=== PATIENT | female | born 2000 | race Caucasian/White ===

== ENCOUNTER 2019-03-22 06:45 | Inpatient (IN) | payer OTHER ==
[2019-03-22] MEDS ORDERED: BUTORPHANOL TARTRATE 2 MG/ML VIAL ONE (07:41)
[2019-03-22] MEDS ORDERED: PROMETHAZINE HCL 25 MG/1 ML VIAL ONE (07:41)
[2019-03-22 07:42] VITALS: BMI 25.4
[2019-03-22] MEDS ORDERED: ELECTROLYTE-148 SOLN 1,000 ML IV SCH (08:00)
[2019-03-22 08:04] LABS: BASO % 0.2 % (0-2.0); EOS % 0.2 % (0-4.5); HEMATOCRIT 36.6 % (32.4-45.2); HEMOGLOBIN 12.4 GM/dL (10.7-15.3); MCHC 33.8 g/dl (32.0-36.0); MEAN CELL VOLUME 91.5 fl (80-96); MEAN PLT VOLUME 10.5 fl (7.5-11.1); MONO % 5.3 % (3.8-10.2); NEUT % 83.3 % (42.8-82.8); RDW 12.8 % (11.6-15.6); WHITE BLOOD COUNT 10.4 K/mm3 (4.0-10.0)
[2019-03-22 08:07] LABS: BLOOD UREA NITROGEN 6.5 mg/dL (7-18); CALCIUM 8.7 mg/dL (8.5-10.1); CREATININE 0.5 mg/dL (0.55-1.3)
[2019-03-22] MEDS ORDERED: BUTORPHANOL TARTRATE 2 MG/ML VIAL IVPB ONE (08:15)
[2019-03-22] MEDS ORDERED: PROMETHAZINE HCL 25 MG/1 ML VIAL IVPB ONE (08:15)
[2019-03-22] MEDS ORDERED: PROMETHAZINE HCL 25 MG/1 ML VIAL IVPB SCH (08:15)
[2019-03-22 08:23] LABS: INR 0.93 (0.83-1.09)
[2019-03-22 08:26] LABS: ACTIVATED PTT 27.8 SECONDS (25.2-36.5)
[2019-03-22 08:56] LABS: PLATELET COUNT 88 K/MM3 (134-434)
[2019-03-22] MEDS ORDERED: OXYTOCIN 30 UNITS in 0.9% NS 30 UNIT/500 ML INFUS.BAG IVPB ONE (09:12)
--- NOTE | 2019-03-22 09:19 | HP ---
Past Medical History - Primary Care Physician PCP:: Jun Piña - Admission Chief Complaint: 38 weeks, labor History of Present Illness: 18 yo f g 1 p0 edc by sono 04/02/19, c/o contraction, cx 7 cm 80 vx -1 mi, fhr cat 1, irregular contraction, . History Source: Friend, Medical Record Limitations to Obtaining History: Language Barrier - Past Medical History ...: 1 ...Para: 0 ...Term: 0 ...: 0 ...Spon : 0 ...Induced : 0 ...Multiple Gestation: 0 ...LMP: 06/26/18 ... Weeks Gestation by Dates: 38.3 ...EDC by Dates: 04/02/19 - Past Surgical History Hx Myomectomy: No Hx Transabdominal Cerclage: No - Smoking History Smoking history: Never smoked Have you smoked in the past 12 months: No - Alcohol/Substance Use Hx Alcohol Use: No - Social History History of Recent Travel: No Home Medications - Allergies Allergies/Adverse Reactions: Allergies Allergy/AdvReac Type Severity Reaction Status Date / Time No Known Allergies Allergy Verified 03/22/19 08:18 - Home Medications Home Medications: Ambulatory Orders Ferrous Sulfate [Iron] 325 mg PO DAILY 03/21/19 Vit No.129/Iron/Folic [ One Daily Tablet] 1 each PO DAILY 03/21 Review of Systems - Review of Systems Constitutional: reports: No Symptoms Eyes: reports: No Symptoms HENT: reports: No Symptoms Neck: reports: No Symptoms Cardiovascular: reports: No Symptoms Respiratory: reports: No Symptoms Gastrointestinal: reports: No Symptoms Genitourinary: reports: No Symptoms Breasts: reports: No Symptoms Reported Musculoskeletal: reports: No Symptoms Integumentary: reports: No Symptoms Neurological: reports: No Symptoms Endocrine: reports: No Symptoms Hematology/Lymphatic: reports: No Symptoms Psychiatric: reports: No Symptoms Physical Exam - Maternity Vital Signs: Vital Signs Temperature 98.0 F 03/22/19 08:01 Pulse Rate 79 03/22/19 08:01 Respiratory Rate 20 03/22/19 08:01 Blood Pressure 113/78 03/22/19 08:01 O2 Sat by Pulse Oximetry (%) Constitutional: Yes: Well Nourished, No Distress, Calm Eyes: Yes: WNL, Conjunctiva Clear, EOM Intact HENT: Yes: WNL, Atraumatic, Normocephalic Neck: Yes: WNL, Supple, Trachea Midline Cardiovascular: Yes: WNL, Regular Rate and Rhythm Breast(s): Yes: WNL - Abdominal Exam/OB Fundal Height: 38 Number of Fetuses: Single Presentation: Vertex Regularity: Irregular Intensity: Mod/Strong Heart Rate Location: [facility] Category: I Accelerations: Uniform Decelerations: None - Vaginal Exam/OB Vaginal Bleediing: Bloody Show Dilatation (cm): 7 cm Effacement (%): 100 Amniotic Membrane Status: Intact Presentation: Vertex/Position Station: 0 - Physical Exam Musculoskeletal: Yes: WNL Extremities: Yes: WNL Edema: Yes Edema: LLE: Trace, RLE: Trace Deep Tendon Reflex Grade: Normal +2 ...Motor Strength: WNL Psychiatric: Yes: WNL - Labs Lab Results: CBC, BMP 03/22/19 07:25 03/22/19 07:25 Hemorrhage Risk Assessment - Risk Factors Medium Risk Factors: Yes: None High Risk Factors: Yes: None Risk Score: 1 Risk Level: Medium Risk Problem List - Problems (1) with 38 completed weeks gestation Code(s): Z3A.38 - 38 WEEKS GESTATION OF (2) Labor established Code(s): DQV8357 - Assessment/Plan admit for vaginal delivery
[2019-03-22] MEDS ORDERED: LIDOCAINE HCL 1% PRESERVATIVE FREE - 30ML VIAL ONE (09:23)
[2019-03-22] MEDS ORDERED: OXYTOCIN 20 UNITS in 0.9% NS 20 UNIT/1,000 ML INFUS.BAG IV ONE (09:24)
--- NOTE | 2019-03-22 09:25 | PN ---
Progress Note (short form) - Note Progress Note: cx 8 cm 100 vx 0 , arom clear , fhr cat1 Problem List - Problems (1) with 38 completed weeks gestation Code(s): Z3A.38 - 38 WEEKS GESTATION OF (2) Labor established Code(s): [id number] -
[2019-03-22] MEDS: OXYTOCIN 20 UNITS in 0.9% NS 20 UNIT/1,000 ML INFUS.BAG IV SCH ×2 (10:00→15:00)
[2019-03-22] MEDS ORDERED: PATIENT'S OWN MEDICATION (NON-FORMULARY) (Ferrous Sulfate [Iron] 325 MG) PO SCH (10:00)
[2019-03-22] MEDS ORDERED: WITCH HAZEL 50% (TUCKS) 40 PAD/JAR PAD TP PRN (10:19)
[2019-03-22] MEDS ORDERED: BENZOCAINE 28 GM HEMORRHOIDAL OINTMENT TP PRN (10:19)
[2019-03-22] MEDS ORDERED: METHYLERGONOVINE MALEATE 0.2 MG/1 ML AMP IM PRN (10:19)
[2019-03-22] MEDS ORDERED: D5W-LR W/ 20 UNITS OXYTOCIN 20 UNIT/1,000 ML INFUS.BAG IV SCH (10:30)
[2019-03-22] MEDS ORDERED: ACETAMINOPHEN 325 MG TABLET (FP) ONE (11:09)
[2019-03-22] MEDS: IBUPROFEN 600 MG TABLET (FP) PO PRN ×3 (11:09→22:17)
[2019-03-22] MEDS: ACETAMINOPHEN 325 MG TABLET (FP) PO PRN ×3 (11:09→22:13)
[2019-03-22] MEDS ORDERED: IBUPROFEN 600 MG TABLET (FP) PO ONE (11:10)
[2019-03-22] MEDS: BENZOCAINE 20% 57 GM BOTTLE TP PRN (13:56)
[2019-03-22] MEDS: FERROUS SO4 325 MG TABLET (FP) PO SCH (17:46)
[2019-03-23] MEDS: FERROUS SO4 325 MG TABLET (FP) PO SCH ×2 (07:34→17:32)
[2019-03-23] MEDS: IBUPROFEN 600 MG TABLET (FP) PO PRN ×3 (07:34→19:18)
[2019-03-23] MEDS: ACETAMINOPHEN 325 MG TABLET (FP) PO PRN ×4 (07:35→21:17)
--- NOTE | 2019-03-23 07:37 | PN ---
Progress Note (short form) - Note Progress Note: ppd 1 doing well, no c/o voids ok, no excess vaginal bleeding CBC, BMP 03/22/19 07:25 Last Vital Signs Temp Pulse Resp BP Pulse Ox 98.4 F 78 18 108/63 100 03/23/19 05:00 03/23/19 05:00 03/23/19 05:00 03/23/19 05:00 03/22/19 11:00 abdomen soft, uterus firm, non tender lochia mild no calf tenderness plan ambulate , cbc Problem List - Problems (1) with 38 completed weeks gestation Code(s): Z3A.38 - 38 WEEKS GESTATION OF (2) Labor established Code(s): [id number] -
[2019-03-23 07:50] LABS: BASO % 0.4 % (0-2.0); EOS % 0.5 % (0-4.5); HEMATOCRIT 30.1 % (32.4-45.2); HEMOGLOBIN 10.3 GM/dL (10.7-15.3); LYMPH % 22.1 % (8-40); MCH 31.4 pg (25.7-33.7); MCHC 34.3 g/dl (32.0-36.0); MEAN CELL VOLUME 91.5 fl (80-96); MEAN PLT VOLUME 10.3 fl (7.5-11.1); MONO % 7.5 % (3.8-10.2); NEUT % 69.5 % (42.8-82.8); RBC 3.29 M/mm3 (3.60-5.2); RDW 13.1 % (11.6-15.6); WHITE BLOOD COUNT 9.4 K/mm3 (4.0-10.0)
[2019-03-23 09:35] LABS: PLATELET COUNT 78 K/MM3 (134-434)
[2019-03-23] MEDS ORDERED: DIPHTH,PERTUSS(ACELL),TET 0.5 ML DISP.SYRIN IM ONE (10:00)
[2019-03-23] MEDS: PRENATAL VITAMINS W/ FOLIC ACID TABLET (FP) PO SCH (10:09)
[2019-03-23] MEDS ORDERED: oxyCODONE HCL 5 MG TABLET PO PRN ×2 (20:08→20:09)
[2019-03-23] MEDS: oxyCODONE HCL 5 MG TABLET PO PRN (21:17)
[2019-03-23] MEDS: BENZOCAINE 20% 57 GM BOTTLE TP PRN (21:18)
[2019-03-23] MEDS ORDERED: SENNOSIDES/DOCUSATE COMBO (SENNA PLUS) TABLET (UD) PO PRN (22:00)
--- NOTE | 2019-03-24 05:11 | DS ---
Physical Exam-PREFLIGHT MECHANIC Vital Signs: Vital Signs Temperature 98.3 F 03/23/19 22:00 Pulse Rate 90 03/23/19 22:00 Respiratory Rate 18 03/23/19 22:00 Blood Pressure 101/55 L 03/23/19 22:00 O2 Sat by Pulse Oximetry (%) 100 03/22/19 11:00 Constitutional: Yes: Well Nourished Eyes: Yes: Conjunctiva Clear HENT: Yes: Atraumatic Neck: Yes: Supple Cardiovascular: Yes: Regular Rate and Rhythm Respiratory: Yes: Regular Gastrointestinal: Yes: Normal Bowel Sounds ...Rectal Exam: Yes: WNL Renal/: Yes: WNL Pelvis: Yes: WNL External Genitalia: Yes: Normal Vaginal Exam: Yes: Normal Cervix: Yes: Normal Uterus: Yes: Firm ....Post : Yes: Uterus firm, Moderate lochia serosa Breast(s): Yes: WNL Musculoskeletal: Yes: WNL Extremities: Yes: WNL Neurological: Yes: Alert, Oriented ...Motor Strength: WNL Psychiatric: Yes: Alert, Oriented Labs: CBC, BMP 03/23/19 07:15 03/22/19 07:25 Delivery - Delivery Type of Anesthesia: Local Episiotomy/Laceration: Midline Delivery, Single - Stages of Labor Date 1st Stage Initiatied: 03/22/19 Time 1st Stage Initiated: 01:00 Date 2nd Stage Initiated: 03/22/19 Time 2nd Stage Initiated: 09:30 Date of Delivery: 03/22/19 Time of Delivery: 09:54 Time Placenta Delivered: 10:00 - Condition of Internetworking Technician/Metal Spinner Present: No Gender: Male Weight: 6 lb 15 oz Position: Left, OA Total Hours ROM (Hrs/Mins): 54 MINS - 1 Minute Total Score: 9 5 Minutes Total Score: 9 - [place] Feeding Plan Initial Plan: Elected not to breastfeed exclusively throughout hospitalization Discharge Summary Reason For Visit: LABOR Current Active Problems Labor established (Acute) with 38 completed weeks gestation (Acute) Status post vaginal delivery (Acute) Procedures: Principal: Normal spontaneous vaginal delivery Hospital Course: Routine care Condition: Good - Instructions Diet, Activity, Other Instructions: Regular diet No douching, no sexual intercourse x 6 weeks. F/U in clinic in 6 weeks Referrals: Jun Piña MD [Staff Physician] - Disposition: HOME - Home Medications Comprehensive Discharge Medication List: Ambulatory Orders Ferrous Sulfate [Iron] 325 mg PO DAILY 03/21/19 Vit No.129/Iron/Folic [ One Daily Tablet] 1 each PO DAILY 03/21
[2019-03-24] MEDS: ACETAMINOPHEN 325 MG TABLET (FP) PO PRN ×3 (05:27→22:02)
[2019-03-24] MEDS: oxyCODONE HCL 5 MG TABLET PO PRN ×4 (05:28→22:00)
[2019-03-24 08:16] LABS: HEMATOCRIT 29.3 % (32.4-45.2); HEMOGLOBIN 10.2 GM/dL (10.7-15.3); MCH 31.8 pg (25.7-33.7); MCHC 34.7 g/dl (32.0-36.0); MEAN CELL VOLUME 91.8 fl (80-96); MEAN PLT VOLUME 10.3 fl (7.5-11.1); PLATELET COUNT 79 K/MM3 (134-434); RDW 12.9 % (11.6-15.6); WHITE BLOOD COUNT 9.4 K/mm3 (4.0-10.0)
[2019-03-24] MEDS: IBUPROFEN 600 MG TABLET (FP) PO PRN ×4 (08:25→22:01)
[2019-03-24] MEDS: FERROUS SO4 325 MG TABLET (FP) PO SCH ×2 (08:25→17:31)
[2019-03-24] MEDS: PRENATAL VITAMINS W/ FOLIC ACID TABLET (FP) PO SCH (10:09)
[2019-03-24] MEDS: BISACODYL 10 MG SUPP.RECT RC PRN (13:20)
--- NOTE | 2019-03-24 21:24 | PN ---
Progress Note (short form) - Note Progress Note: Patient seen prior to discharge and in stable condition. Ambulation, tolerating PO. Only reports "pain where stitches are." In patient documentation reviewed and significant for episiotomy and gestational thombocytopenia. Patient reassured and NSAIDs, conservative measurements recommended. She was instructed to follow up at health center within a week. I spoke with patient's father on the phone and all questions answered.
[2019-03-25] MEDS: oxyCODONE HCL 5 MG TABLET PO PRN (03:49)
[2019-03-25] MEDS: IBUPROFEN 600 MG TABLET (FP) PO PRN ×2 (03:50→08:30)
[2019-03-25] MEDS: ACETAMINOPHEN 325 MG TABLET (FP) PO PRN ×2 (03:51→08:30)
[2019-03-25] MEDS: FERROUS SO4 325 MG TABLET (FP) PO SCH (08:30)
[2019-03-25] MEDS: BISACODYL 10 MG SUPP.RECT RC PRN (08:31)
[2019-03-25] MEDS: PRENATAL VITAMINS W/ FOLIC ACID TABLET (FP) PO SCH (10:19)
[2019-03-25 10:54] VITALS: BP 102/53; PULSE 71; TEMP 98.4
== END 2019-03-25 12:15 | disposition home or self-care (01) | DRG 560 ==
LOC: JLDR 06:45 → J3W 11:59
PROVIDERS: ADMIT Obstetrics & Gynecology; ATTEND Obstetrics & Gynecology
PROC: 10E0XZZ Delivery of Products of Conception, External Approach (ICD-10-PCS; principal; 2019-03-22)
PROC: 0W8NXZZ Division of Female Perineum, External Approach (ICD-10-PCS; 2019-03-22)
DX: O99.12 Other diseases of the blood and blood-forming organs and certain disorders involving the immune mechanism complicating childbirth (principal); D69.6 Thrombocytopenia, unspecified; Z3A.38 38 weeks gestation of pregnancy; Z37.0 Single live birth
CPT/HCPCS: 36415; 59025; 59409; 80048; 85025; 85027; 85610; 85730; 86593; 86850; 86900; 86901; 90715

== ENCOUNTER 2019-04-19 21:28 | Emergency (ER) | payer OTHER ==
[2019-04-19 21:53] VITALS: BP 107/72; PULSE 70; TEMP 97.3; BMI 22.8
[2019-04-19] MEDS ORDERED: DEXAMETHASONE LIQUID 0.5 MG/5 ML 240 ML BULK BOTTLE PO ONE (22:29)
[2019-04-19] MEDS ORDERED: DEXAMETHASONE SOD PHOSPHATE 10 MG/1 ML VIAL ONE (22:30)
[2019-04-19] MEDS ORDERED: PENICILLIN G BENZATHINE 1,200,000 UNIT/2 ML PFS IM ONE (22:30)
[2019-04-19] MEDS: PENICILLIN G BENZATHINE 1,200,000 UNIT/2 ML PFS IM ONE ×2 (22:35→22:38)
--- NOTE | 2019-04-19 22:39 | PDOC ---
History of Present Illness - General Chief Complaint: Sore Throat Stated Complaint: THROAT PAIN/EARACHE Time Seen by Provider: 04/19/19 22:29 History Source: Patient Exam Limitations: No Limitations - History of Present Illness Initial Comments: 04/19/19 22:29 HISTORY OF PRESENT ILLNESS: 18-year-old woman one month who presents emergency department for evaluation of sore throat, fevers and bilateral ear pain for the past 5 days. She states her pain improved after the first 2 days but then came back with fevers and chills. She reports increased throat pain and difficulty swallowing solid foods or liquids. Patient's mother is here for evaluation of similar symptoms. No recent travel or sick contacts. PAST MEDICAL HISTORY: Denies past medical history SURGICAL HISTORY: Denies ALLERGIES: NKDA REVIEW OF SYSTEMS General/Constitutional: see HPI HEENT: see HPI Cardiovascular: Denies chest pain or shortness of breath. Respiratory: Denies cough, wheezing, or hemoptysis. Gastrointestinal: Denies nausea, vomiting, diarrhea or constipation. Denies rectal bleeding. Genitourinary: Denies dysuria, frequency, or change in urination. Musculoskeletal: Denies joint or muscle swelling or pain. Denies neck or back pain. Skin and breasts: Denies rash or easy bruising. Neurologic: Denies headache, vertigo, loss of consciousness, or loss of sensation. Psychiatric: Denies depression or anxiety. Endocrine: Denies increased thirst. Denies abnormal weight change. Hematologic/Lymphatic: Denies anemia, easy bleeding, or history of blood clots. Allergic/Immunologic: Denies hives or skin allergy. Denies latex allergy. PHYSICAL EXAM General Appearance: Well-appearing, appropriately dressed. No apparent distress , no intoxication. HEENT: EOMI, PERRLA, normal voice, TMs normal. No conjunctival pallor. No photophobia, scleral icterus. Oropharynx is erythematous with tonsillar exudate present bilaterally. No lesions are noted. Neck: Supple. Trachea midline. No tenderness, rigidity, carotid bruit, stridor , lymphadenopathy, or thyromegaly. Respiratory/Chest: Lungs CTAB. No shortness of breath, chest tenderness, respiratory distress, accessory muscle use. No crackles, rales, rhonchi, stridor , wheezing, dullness Cardiovascular: RRR. S1, S2. No JVD, murmur, bradycardia, tachycardia. Neurologic: missile and missile checkout technician II-XII intact. Fully oriented, alert. Appropriate mood/affect. Motor strength 5/5. No appreciable EOM palsy, facial droop or sensory deficit. Past History - Past Medical History Allergies/Adverse Reactions: Allergies Allergy/AdvReac Type Severity Reaction Status Date / Time No Known Allergies Allergy Verified 03/22/19 08:18 Home Medications: Ambulatory Orders Ferrous Sulfate [Iron] 325 mg PO DAILY 03/21/19 Vit No.129/Iron/Folic [ One Daily Tablet] 1 each PO DAILY 03/21 Ibuprofen 600 mg PO Q6H PRN #30 tablet 03/24/19 Ibuprofen [Motrin -] 600 mg PO QID #28 tablet 03/24/19 Ibuprofen [Motrin -] 600 mg PO Q4H PRN #60 tablet 03/25/19 Cephalexin Monohydrate [Keflex -] 500 mg PO BID #20 capsule 04/19/19 Asthma: No Cancer: No Cardiac Disorders: No Diabetes: No HTN: No Seizures: No Thyroid Disease: No - Suicide/Smoking/Psychosocial Hx Smoking History: Never smoked Have you smoked in the past 12 months: No Information on smoking cessation initiated: No Hx Alcohol Use: No Drug/Substance Use Hx: No Hx Substance Use Treatment: No *Physical Exam - Vital Signs Last Vital Signs Temp Pulse Resp BP Pulse Ox 97.3 F L 70 20 107/72 99 04/19/19 21:50 04/19/19 21:50 04/19/19 21:50 04/19/19 21:50 04/19/19 21:50 Medical Decision Making - Medical Decision Making 04/19/19 22:34 A/P: 18-year-old woman with pharyngitis. Physical exam is consistent with streptococcal infection. I'll treat patient with Decadron 10 mg orally now. I will discharge the patient home with a prescription for Keflex to treat as she is breast-feeding. I discussed the physical exam findings, ancillary test results and final diagnoses with the patient. I answered all of the patient's questions. The patient was satisfied with the care received and felt comfortable with the discharge plan and treatment plan. The patient will call their primary care physician within 24 hours to arrange follow-up and will return to the Emergency Department with any new, persistent or worsening symptoms. *DC/Admit/Observation/Transfer Diagnosis at time of Disposition: Pharyngitis Qualifiers: Pharyngitis/tonsillitis etiology: unspecified etiology Qualified Code(s): J02.9 - Acute pharyngitis, unspecified - Discharge Dispostion Disposition: HOME Condition at time of disposition: Fair Decision to Admit order: No - Prescriptions Prescriptions: Cephalexin Monohydrate [Keflex -] 500 mg PO BID #20 capsule - Referrals Referrals: Iván Kasper [Primary Care Provider] - - Patient Instructions Additional Instructions: Take keflex as prescribed. Salt water garggles. Throw away your toothbrush in 3 days and start using a new toothbrush. No sharing of drinks, utensils or toothbrushes. Take Motrin as directed by leadership coach's instructions. Return to ED for worsening fevers, worsening sore throat, chest pain, shortness of breath or any other concerns. - Post Discharge Activity
== END 2019-04-19 22:44 | disposition home or self-care (01) ==
LOC: JERFT 21:28 → JER 21:28 → JERFT 22:44
DX: O90.89 Other complications of the puerperium, not elsewhere classified (principal); J02.9 Acute pharyngitis, unspecified
CPT/HCPCS: 99281-25

== ENCOUNTER 2019-08-18 22:23 | Emergency (ER) | payer OTHER ==
[2019-08-18 22:33] VITALS: BP 110/60; PULSE 99; TEMP 98.4; BMI 24.4
--- NOTE | 2019-08-18 22:43 | PDOC ---
History of Present Illness - General Chief Complaint: Sore Throat Stated Complaint: COLD SYMPTOMS Time Seen by Provider: 08/18/19 22:42 History Source: Patient - History of Present Illness Initial Comments: 08/18/19 22:59 18 year old female with throat pain, cough, nasal congestion x 2 days. TMAX 100.7 today. patient also reports dysuria x 1 weekDenies nausea, vomiting, diarrhea., PMHX: none 08/18/19 23:02 Past History - Past Medical History Allergies/Adverse Reactions: Allergies Allergy/AdvReac Type Severity Reaction Status Date / Time No Known Allergies Allergy Verified 08/18/19 22:31 Home Medications: Ambulatory Orders Ferrous Sulfate [Iron] 325 mg PO DAILY 03/21/19 Vit No.129/Iron/Folic [ One Daily Tablet] 1 each PO DAILY 03/21 Ibuprofen 600 mg PO Q6H PRN #30 tablet 03/24/19 Ibuprofen [Motrin -] 600 mg PO QID #28 tablet 03/24/19 Ibuprofen [Motrin -] 600 mg PO Q4H PRN #60 tablet 03/25/19 Cephalexin Monohydrate [Keflex -] 500 mg PO BID #20 capsule 04/19/19 Amoxicillin/Potassium Clav [Augmentin 875-125 Tablet] 1 each PO BID #20 tablet 08/18/19 Sodium Chloride [Saline Nasal [place]] 1 ml NS BID #1 spray 08/18/19 Asthma: No Cancer: No Cardiac Disorders: No COPD: No Diabetes: No HTN: No Seizures: No Thyroid Disease: No - Psycho Social/Smoking Cessation Hx Smoking History: Never smoked Have you smoked in the past 12 months: No Hx Alcohol Use: No Drug/Substance Use Hx: No Hx Substance Use Treatment: No Review of Systems - Review of Systems Able to Perform ROS?: Yes Is the patient limited Citizen Of [place] proficient: No Constitutional: Yes: Fever HEENTM: Yes: Nose Congestion Respiratory: Yes: Cough ABD/GI: No: Symptoms Reported, See HPI, Abdominal Distended, Abd. Pain w/ defecation, Blood Streaked Bowels, Constipated, Diarrhea, Difficulty Swallowing , Nausea, Poor Appetite, Poor Fluid Intake, Rectal Bleeding, Vomiting, Indigestion, Abdominal cramping, Tarry Stools, Other : Yes: Dysuria. No: Symptoms Reported, See HPI, Burning, Discharge, Frequency , Flank Pain, Hematuria, Incontinence, Pain, Urgency, Testicular Mass, Testicular Swelling, Lesions, Testicular Pain, Other *Physical Exam - Vital Signs Last Vital Signs Temp Pulse Resp BP Pulse Ox 98.4 F 99 H 18 110/60 100 08/18/19 22:32 08/18/19 22:32 08/18/19 22:32 08/18/19 22:32 08/18/19 22:32 - Physical Exam General Appearance: Yes: Appropriately Dressed HEENT: positive: Tonsillar Erythema, TM Bulging, TM Dull, TM Erythema (b/l) Respiratory/Chest: positive: Lungs Clear, Normal Breath Sounds Gastrointestinal/Abdominal: positive: Normal Bowel Sounds, Soft. negative: Tender Neurologic: positive: Fully Oriented, Alert Medical Decision Making - Medical Decision Making A: URI P: augmentin pain control pcp follow up Discharge - Discharge Information Problems reviewed: Yes Clinical Impression/Diagnosis: URI (upper respiratory infection) Qualifiers: URI type: unspecified URI Qualified Code(s): J06.9 - Acute upper respiratory infection, unspecified Disposition: HOME - Additional Discharge Information Prescriptions: Amoxicillin/Potassium Clav [Augmentin 875-125 Tablet] 1 each PO BID #20 tablet Sodium Chloride [Saline Nasal [place]] 1 ml NS BID #1 spray - Follow up/Referral - Patient Discharge Instructions Patient Printed Discharge Instructions: Middle Ear Infection Additional Instructions: Drink plenty of fluids take Augmentin as prescribed Gargle with warm salty water Drink warm liquids Take ibuprofen every 6 hours as needed for pain or fever Additional Instructions: * Please call your personal physician to report your Emergency Department visit and to report your progress, if any. * If there is no improvement in symptoms in 2 days call your physician. * Return to the Emergency Department for any worsening symptoms. - Post Discharge Activity
[2019-08-18] MEDS ORDERED: ACETAMINOPHEN 500 MG TABLET (FP) PO ONE (22:44)
[2019-08-18] MEDS ORDERED: ACETAMINOPHEN 500 MG TABLET (FP) ONE (23:02)
== END 2019-08-18 23:21 | disposition home or self-care (01) ==
LOC: JER 22:23
DX: J06.9 Acute upper respiratory infection, unspecified (principal)
CPT/HCPCS: 99281-25

== ENCOUNTER 2019-10-12 22:46 | Emergency (ER) | payer OTHER ==
[2019-10-12 23:04] VITALS: BP 118/54; PULSE 80; TEMP 97.3; BMI 21.6
--- NOTE | 2019-10-13 00:33 | PDOC ---
History of Present Illness - General Chief Complaint: Vaginal Bleeding Stated Complaint: BLEEDING Time Seen by Provider: 10/13/19 00:06 - History of Present Illness Initial Comments: 10/13/19 00:27 19 yo F, , presenting with vaginal bleeding. Thai speaking only. since March 2019, last period was 09/04/2019. Notes that she had bleeding September 20, but less than her normal period. Since then, she has been bleeding a small amount every day. Patient notes that she has an appointment with her OBGYN on Saturday. Patient asks how long the visit is going to take, then states that she has changed her mind and will follow up with her OBGYN. Refuses physical exam, labs , pelvic exam, transvaginal ultrasound. Past History - Past Medical History Allergies/Adverse Reactions: Allergies Allergy/AdvReac Type Severity Reaction Status Date / Time No Known Allergies Allergy Verified 10/12/19 23:04 Home Medications: Ambulatory Orders Ferrous Sulfate [Iron] 325 mg PO DAILY 03/21/19 Vit No.129/Iron/Folic [ One Daily Tablet] 1 each PO DAILY 03/21 Ibuprofen 600 mg PO Q6H PRN #30 tablet 03/24/19 Ibuprofen [Motrin -] 600 mg PO QID #28 tablet 03/24/19 Ibuprofen [Motrin -] 600 mg PO Q4H PRN #60 tablet 03/25/19 Cephalexin Monohydrate [Keflex -] 500 mg PO BID #20 capsule 04/19/19 Amoxicillin/Potassium Clav [Augmentin 875-125 Tablet] 1 each PO BID #20 tablet 08/18/19 Sodium Chloride [Saline Nasal [place]] 1 ml NS BID #1 spray 08/18/19 Asthma: No Cancer: No Cardiac Disorders: No COPD: No Diabetes: No HTN: No Seizures: No Thyroid Disease: No - Psycho Social/Smoking Cessation Hx Smoking History: Never smoked Have you smoked in the past 12 months: No Information on smoking cessation initiated: No Hx Alcohol Use: No Drug/Substance Use Hx: No Hx Substance Use Treatment: No Review of Systems - Review of Systems Able to Perform ROS?: No (patient refuses) *Physical Exam - Vital Signs Last Vital Signs Temp Pulse Resp BP Pulse Ox 97.3 F L 80 18 118/54 L 99 10/12/19 23:01 10/12/19 23:01 10/12/19 23:01 10/12/19 23:01 10/12/19 23:01 - Physical Exam 10/13/19 00:33 Patient refuses. Medical Decision Making - Medical Decision Making 10/13/19 00:33 19 yo F, , presenting with vaginal bleeding. Patient refuses testing or examination. Risks of potential worsening vaginal bleeding, chest pain, shortness of breath, or potential explained. Patient understands these risks and states that she is comfortable following up with her OBGYN on Saturday. She is competent to make this decision and will be signed out AMA. Discharge - Discharge Information Problems reviewed: Yes Clinical Impression/Diagnosis: Vaginal bleeding Condition: Stable Disposition: AGAINST MEDICAL ADVICE - Follow up/Referral - Patient Discharge Instructions - Post Discharge Activity
--- NOTE | 2019-10-13 00:39 | PDOC ---
Attending Attestation - Resident Resident Name: keren
--- NOTE | 2019-10-13 00:43 | PDOC ---
Documentation entered by Dereck Harris SCRIBE, acting as scribe for Demetrice Liu MD. Demetrice Liu MD: This documentation has been prepared by the Kimberly epps Nirvannie, SCRIBE, under my direction and personally reviewed by me in its entirety. I confirm that the documentation accurately reflects all work, treatment, procedures, and medical decision making performed by me. Attending Attestation - Resident Resident Name: Leda Patrick - ED Attending Attestation I have performed the following: I have examined & evaluated the patient, The case was reviewed & discussed with the resident, I agree w/resident's findings & plan, Exceptions are as noted - HPI HPI: 10/13/19 00:39 The patient is a 19 year old female , with no significant past medical history, who presents to the emergency department with persistent vaginal bleeding. Patient notes her last normal menstrual period was 08/30 then onsetting 09/20 she has been experiencing persistent vaginal spotting. Patient notes to have an appointment with her FURNITURE REPAIRER 10/14/19. She denies recent dysuria, frequency, urgency or hematuria. She denies recent chest pain or shortness of breath. Allergies: NKDA - Physicial Exam PE: 10/13/19 00:40 Patient refused her pelvic exam and did not want to stay because she felt it would take too long and she already had an appointment with her bedspread folder on Saturday and she left 10/13/19 00:42 - Medical Decision Making 10/13/19 00:42 pt signed AMA and left
== END 2019-10-13 00:45 | disposition left against medical advice (07) ==
LOC: JER 22:46
DX: N93.8 Other specified abnormal uterine and vaginal bleeding (principal)
CPT/HCPCS: 99281-25

== ENCOUNTER 2021-12-07 17:55 | Inpatient (IN) | payer OTHER ==
[2021-12-07] MEDS ORDERED: AMPICILLIN SODIUM 2 GM VIAL ONE (18:18)
[2021-12-07] MEDS ORDERED: PROMETHAZINE HCL 25 MG/1 ML VIAL IVPUSH ONE (18:19)
[2021-12-07] MEDS ORDERED: BUTORPHANOL TARTRATE 2 MG/ML VIAL IVPUSH ONE (18:19)
[2021-12-07] MEDS ORDERED: AMPICILLIN - 2 GM in SODIUM CHLORIDE 100 ML IVPB ONE (18:20)
[2021-12-07] MEDS ORDERED: DEXTROSE 5%-LACTATED RINGERS 1,000 ML IV SCH (18:30)
[2021-12-07 18:50] VITALS: BMI 26.1
[2021-12-07] MEDS ORDERED: PROMETHAZINE HCL 25 MG/1 ML VIAL ONE (18:55)
[2021-12-07] MEDS ORDERED: BUTORPHANOL TARTRATE 2 MG/ML VIAL ONE (18:55)
[2021-12-07 19:00] LABS: BASO % 0.2 % (0-2.0); EOS % 0.2 % (0-4.5); HEMATOCRIT 37.1 % (32.4-45.2); HEMOGLOBIN 13.1 GM/dL (10.7-15.3); LYMPH % 12.7 % (8-40); MCH 31.2 pg (25.7-33.7); MCHC 35.2 g/dl (32.0-36.0); MEAN CELL VOLUME 88.6 fl (80-96); MEAN PLT VOLUME 10.6 fl (7.5-11.1); MONO % 6.3 % (3.8-10.2); NEUT % 80.6 % (42.8-82.8); PLATELET COUNT 121 10^3/uL (134-434); RBC 4.19 M/mm3 (3.60-5.2); RDW 13.2 % (11.6-15.6); WHITE BLOOD COUNT 10.5 K/mm3 (4.0-10.0)
[2021-12-07 19:08] LABS: INR 0.97 (0.83-1.09); PROTHROMBIN TIME (PATIENT) 11.1 SEC (9.7-13.0)
[2021-12-07 19:10] LABS: ACTIVATED PTT 28.8 SECONDS (25.2-36.5)
[2021-12-07] MEDS ORDERED: LIDOCAINE HCL 1% PRESERVATIVE FREE - 30ML VIAL ONE (19:20)
[2021-12-07] MEDS ORDERED: OXYTOCIN 20 UNITS in 0.9% NS 20 UNIT/1,000 ML INFUS.BAG IV ONE (19:20)
[2021-12-07 19:50] LABS: BLOOD UREA NITROGEN 6.2 mg/dL (7-18); CALCIUM 8.9 mg/dL (8.5-10.1)
[2021-12-07 19:54] LABS: CREATININE 0.4 mg/dL (0.55-1.3)
[2021-12-07] MEDS ORDERED: METHYLERGONOVINE MALEATE 0.2 MG/1 ML AMP IM PRN (19:56)
[2021-12-07] MEDS ORDERED: oxyCODONE HCL 5 MG TABLET PO PRN (19:56)
[2021-12-07] MEDS ORDERED: WITCH HAZEL 50% (TUCKS) 40 PAD/JAR PAD TP PRN (19:56)
[2021-12-07] MEDS ORDERED: ACETAMINOPHEN 325 MG TABLET (FP) PO PRN (19:56)
[2021-12-07] MEDS ORDERED: BENZOCAINE 20% 57 GM BOTTLE TP PRN (19:56)
[2021-12-07] MEDS ORDERED: BISACODYL 10 MG SUPP.RECT RC PRN (19:56)
[2021-12-07] MEDS ORDERED: BENZOCAINE 28 GM HEMORRHOIDAL OINTMENT TP PRN (19:56)
[2021-12-07] MEDS ORDERED: OXYTOCIN 20 UNITS in 0.9% NS 20 UNIT/1,000 ML INFUS.BAG IV SCH (20:00)
[2021-12-07 20:17] LABS: HIV INTERPRETATION NEGATIVE (NEGATIVE)
[2021-12-07] MEDS: IBUPROFEN 600 MG TABLET (FP) PO PRN (21:15)
[2021-12-07] MEDS ORDERED: IBUPROFEN 600 MG TABLET (FP) PO ONE (21:22)
[2021-12-07 22:27] LABS: METHADONE, UR NEGATIVE (NEGATIVE)
[2021-12-07 22:28] LABS: COCAINE, UR NEGATIVE (NEGATIVE); OPIATES, URI NEGATIVE (NEGATIVE); PHENCYCLIDINE,URINE NEGATIVE (NEGATIVE); URINE BENZODIAZEPINES NEGATIVE (NEGATIVE)
[2021-12-07 22:29] LABS: URINE AMPHETAMINES NEGATIVE (NEGATIVE); URINE BARBITURATES NEGATIVE (NEGATIVE)
[2021-12-08] MEDS: IBUPROFEN 600 MG TABLET (FP) PO PRN ×3 (02:04→13:37)
[2021-12-08 08:13] LABS: BASO % 0.4 % (0-2.0); EOS % 0.4 % (0-4.5); HEMATOCRIT 31.5 % (32.4-45.2); HEMOGLOBIN 11.1 GM/dL (10.7-15.3); LYMPH % 23.3 % (8-40); MCH 31.4 pg (25.7-33.7); MCHC 35.3 g/dl (32.0-36.0); MEAN CELL VOLUME 88.9 fl (80-96); MEAN PLT VOLUME 11.1 fl (7.5-11.1); MONO % 8.7 % (3.8-10.2); NEUT % 67.2 % (42.8-82.8); PLATELET COUNT 105 10^3/uL (134-434); RBC 3.54 M/mm3 (3.60-5.2); RDW 13.5 % (11.6-15.6); WHITE BLOOD COUNT 7.5 K/mm3 (4.0-10.0)
[2021-12-08 13:08] LABS: SARS-CoV-2 NAA Not Detected (Not Detected)
[2021-12-08 14:14] LABS: METHADONE, UR NEGATIVE (NEGATIVE); URINE BARBITURATES NEGATIVE (NEGATIVE)
[2021-12-08 14:15] LABS: COCAINE, UR NEGATIVE (NEGATIVE); PHENCYCLIDINE,URINE NEGATIVE (NEGATIVE); URINE BENZODIAZEPINES NEGATIVE (NEGATIVE)
[2021-12-08 14:16] LABS: OPIATES, URI NEGATIVE (NEGATIVE)
[2021-12-08 14:20] LABS: URINE AMPHETAMINES NEGATIVE (NEGATIVE)
[2021-12-08] MEDS ORDERED: SENNOSIDES/DOCUSATE COMBO (SENNA PLUS) TABLET (UD) PO PRN (22:00)
[2021-12-09] MEDS: IBUPROFEN 600 MG TABLET (FP) PO PRN ×2 (02:22→11:49)
[2021-12-09 09:32] VITALS: BP 105/69; PULSE 84; TEMP 97.9
== END 2021-12-09 14:25 | disposition home or self-care (01) | DRG 560 ==
LOC: JDEL 17:55 → JLDR 18:10 → J3W 21:48
PROVIDERS: ADMIT Obstetrics & Gynecology; ATTEND Obstetrics & Gynecology
PROC: 10E0XZZ Delivery of Products of Conception, External Approach (ICD-10-PCS; principal; 2021-12-07)
PROC: 0HQ9XZZ Repair Perineum Skin, External Approach (ICD-10-PCS; 2021-12-07)
PROC: 10907ZC Drainage of Amniotic Fluid, Therapeutic from Products of Conception, Via Natural or Artificial Opening (ICD-10-PCS; 2021-12-07)
DX: O70.0 First degree perineal laceration during delivery (principal); Z3A.37 37 weeks gestation of pregnancy; Z37.0 Single live birth
CPT/HCPCS: 36415; 59409; 80048; 80307; 85025; 85610; 85730; 86762; 86780; 86850; 86900; 86901; 87340; 87389; C9803; U0003; U0005